=== PATIENT | female | born 1975 | race Caucasian/White ===

== ENCOUNTER → 2017-10-24 | Outpatient (CLI) | payer OTHER | LOC: PHPRE 13:49 | PROVIDERS: ATTEND Obstetrics & Gynecology | DX: Z01.812 Encounter for preprocedural laboratory examination (principal); N94.19 Other specified dyspareunia; N94.5 Secondary dysmenorrhea; N92.0 Excessive and frequent menstruation with regular cycle; N80.8 Other endometriosis | CPT/HCPCS: 36415; 86850; 86900; 86901; 86920 ==

== ENCOUNTER → 2017-10-26 | Day surgery (SDC) | payer OTHER ==
[~2017-10-26] VITALS: Ht 170.2 cm; Wt 61.4 kg
[~2017-10-26] MED LIST: ACETAMINOPHEN 1000 MG/100 ML 100 ML IV ONE; BUPIVACAINE LIPOSOME PF 1.3% 20 ML VIAL ONE; CHLORHEXIDINE GLUCONATE 2 % 1 PACK (2 CLOTHS) TOPICAL PRN; DEXAMETHASONE SOD PHOS 4 MG/ML VIAL ONE; FAMOTIDINE 20 MG/2 ML VIAL ONE; LACTATED RINGER'S 1000 ML IV PRN; METOPROLOL TARTRATE 25 MG TAB PO PRN; MIDAZOLAM HCL 5 MG/ML VIAL (1 ML) ONE; MORPHINE SULFATE 4 MG/ML INJ ONE; POVIDONE IODINE 5% (ANTISEPSIS KIT) 4 APPLICATIONS EACH NARE PRN; SODIUM CHLORID 0.9% 500 ML IV PRN; ceFAZolin 1,000 MG/NS 100 ML IV SCH; diphenhydrAMINE HCL 50 MG/ML VIAL ONE; oxyCODONE/ACETAMINOPHEN 5 MG/325 MG TAB ONE
[2017-10-26 08:30] VITALS: PULSE 54
[2017-10-26 08:55] VITALS: PULSE 54
[2017-10-26 11:20] VITALS: PULSE 55
[2017-10-26 13:49] VITALS: BP 107/61; PULSE 68; RESP 16; TEMP 97.7; O2SAT 100
--- NOTE | 2017-11-06 17:12 | MP ---
cc: ANGELITA GUERRA MD DATE OF SURGERY: 10/26/2017. PREOPERATIVE DIAGNOSIS: Dysmenorrhea, menorrhagia and dyspareunia with a history of endometriosis of the right ovary. POSTOPERATIVE DIAGNOSIS: Dysmenorrhea, menorrhagia and dyspareunia with a history of endometriosis of the right ovary. OPERATIVE PROCEDURE PERFORMED: Laparoscopic-assisted supracervical hysterectomy with right salpingo-oophorectomy and left salpingectomy. SURGEON: Angelita Guerra M.D. ANESTHESIA: General endotracheal COMPLICATIONS: None. ESTIMATED BLOOD LOSS: 200 mL. FINDINGS: At time of surgery, the patient was found to have no evidence of residual endometriosis despite previous surgery. For that reason her tubes and ovaries were free and not involved with adhesions bilaterally. The uterus was normal in size, shape and contour. She sounded to 7 cm. DESCRIPTION OF THE PROCEDURE IN DETAIL: The patient was taken to the operating room and placed supine on the operating room table. After general endotracheal anesthetic, she was prepped and draped in low stirrups with a Latham catheter placed. W weighted vaginal speculum was placed in the vagina. The anterior lip of the cervix was grasped with a single-tooth tenaculum and HUMI uterine manipulator was inserted. After re-gloving, attention was turned to the abdomen where a 10 mm incision was made in the umbilicus. A Veress needle was inserted and 2 liters of CO2 were instilled without difficulty followed by placement of the trocar. Then under direct visualization, 5-mm ports were placed in the right and left lower quadrants using transillumination to avoid major blood vessels and other structures. The patient was then placed in Trendelenburg position, and using the harmonic device, the right infundibulopelvic ligament was divided. The right round ligament was also divided as was the left and the bladder flap was developed anteriorly. On the left side, the tube was from the ovary again with the harmonic device and the mesosalpinx was transected leaving the tube free and attached to the uterus. Successive bites with the harmonic scalpel were then performed down on each side of the uterus staying as close to the uterus as possible and down to the level of the junction of the cervix and the uterus. At that point, a drilling technique again with the harmonic device was used to transect the cervix. The morcellator was then brought into use and the uterus, right ovary and both tubes were removed through the morcellator. Irrigation and careful inspection revealed no significant tissue remaining in the pelvis. The patient had no unusual bleeding and was stable throughout the case. The procedure therefore being complete, the instruments were removed from the abdomen and pneumoperitoneum was released. A #0 Vicryl suture in [id number] fashion was used to close the fascia in the umbilicus. A subcuticular closure of the skin on all three sites with 4-0 Monocryl was followed by application of Dermabond to seal the wound. The Latham catheter was removed and the patient was taken to the recovery room awake and breathing on her own. She tolerated the procedure well. Sponge, needle and instrument counts were correct. MD MELIA Wood/PATRICK /5:48 PM /4:50 PM
== END | disposition home or self-care (01) ==
LOC: PHSDC 06:47 → EDUNIT# 10:00
PROVIDERS: ATTEND Obstetrics & Gynecology
DX: N80.8 Other endometriosis (principal); N94.5 Secondary dysmenorrhea; N94.19 Other specified dyspareunia; N83.01 Follicular cyst of right ovary; N83.8 Other noninflammatory disorders of ovary, fallopian tube and broad ligament
CPT/HCPCS: 00840; 58542; 64486; 88307; C1782; C9290; J0131; J0690; J1100; J1200; J2250; J2270; J7120